=== PATIENT | male | born 1950 | race Caucasian/White ===

== ENCOUNTER → 2017-02-07 | Outpatient (CLI) | payer MEDICARE, BC ==
[~2017-02-07] MED LIST: ALLOPURINOL300 MG PO; APRESOLINE PO; ASPIRIN PO; ATACAND PO; CARVEDILOL25 MG; CARVEDILOL25 MG PO; CATAPRES0.3 MG PO; CHANTIX PO; COREG PO; COREG6.25 MG PO; DEMADEX PO; DIOVAN320 MG PO; DYNACIRC5 MG PO; ECOTRIN81 M1 PO; HYDRALAZINE HC100 MG PO; LASIX PO; LIPITOR PO; LIPITOR20 MG PO; LISINOPRIL PO; LONITEN10 M1 DOB; LORTAB 2.5/5001 TAB PO; LORTAB 7.5-5001 TAB PO; METHYLDOPA250 M1 PO; NITROGYLCERIN SUBLINGUAL; NITROSTAT0.4 MG SL; NORVASC PO; OMEPRAZOLE40 MG PO; PRILOSEC40 MG PO; PRINIVIL40 MG PO; SPIRONOLACTONE50 MG PO; TORSEMIDE10 MG PO; ZYLOPRIM PO
[2017-02-07 08:58] LABS: HEMATOCRIT 42.2 % (38.0-50.0); HEMOGLOBIN 14.4 gm/dL (13.0-16.0)
== END | disposition home or self-care (01) ==
LOC: CLAB 08:23
PROVIDERS: Nurse Practitioner
DX: E83.119 Hemochromatosis, unspecified (principal)
CPT/HCPCS: 36415; 85014; 85018; 99195; G0463

== ENCOUNTER → 2017-02-21 | Outpatient (CLI) | payer MEDICARE, BC ==
[2017-02-21 07:52] LABS: HEMOGLOBIN 13.3 gm/dL (13.0-16.0)
[2017-02-21 09:03] LABS: BASOPHIL# 0.1 X10e3 (0-0.3); BASOPHIL% 0.8 % (0-2.5); EOSINOPHIL# 0.3 X10e3 (0-0.7); EOSINOPHIL% 4.2 % (0.0-7.0); HEMATOCRIT 36.6 % (38.0-50.0); HEMOGLOBIN 12.5 gm/dL (13.0-16.0); LYMPHOCYTE# 1.4 X10e3 (1.0-3.5); LYMPHOCYTE% 19.1 % (17.0-45.0); MEAN CELL VOLUME 89.8 FL (83-96); MEAN CORPUSCULAR HEMOGLOBIN 30.5 PG (28-34); MEAN PLATELET VOLUME 8.5 FL (6.5-11.5); MONOCYTE# 0.6 X10e3 (0-1.0); MONOCYTE% 7.9 % (3.0-12.0); PLATELET COUNT 188 X10e3 (140-420); RED BLOOD COUNT 4.08 X10e (3.90-5.60); RED CELL DISTRIBUTION WIDTH 14.1 % (11.0-15.5); WHITE BLOOD COUNT 7.4 X10e3 (4.0-10.5)
[2017-02-21 09:16] LABS: DIFF IND NO
[2017-02-21 10:43] LABS: ALBUMIN SERUM 3.8 g/dL (3.5-5.0); BILIRUBIN,TOTAL 0.3 mg/dL (0.2-2.0); BUN/CREATININE RATIO 13.88; CALCIUM SERUM 8.6 mg/dL (8.4-10.2); CREATININE SERUM 1.8 mg/dL (0.6-1.4); GLOM FILT RATE Estimated 38.4 mL/min (>60); PROTEIN TOTAL SERUM 6.2 g/dL (6.0-8.3)
== END | disposition home or self-care (01) ==
LOC: CSSDAY 07:29
PROVIDERS: Nurse Practitioner
DX: E83.119 Hemochromatosis, unspecified (principal)
CPT/HCPCS: 36415; 80053; 82728; 85014; 85018; 85025; 99195; G0463

== ENCOUNTER 2017-05-16 10:26 | Emergency (ER) | payer MEDICARE, BC | END 2017-05-16 12:50 | disposition home or self-care (01) | LOC: CED 10:26 → CFTX 10:26 | DX: M10.9 Gout, unspecified (principal); I10 Essential (primary) hypertension; F17.210 Nicotine dependence, cigarettes, uncomplicated; Z88.8 Allergy status to other drugs, medicaments and biological substances | CPT/HCPCS: 99283 ==

== ENCOUNTER → 2017-06-01 | Outpatient (CLI) | payer MEDICARE, BC ==
[2017-06-01 08:46] LABS: BASOPHIL# 0.1 X10e3 (0-0.3); BASOPHIL% 0.9 % (0-2.5); EOSINOPHIL# 0.3 X10e3 (0-0.7); EOSINOPHIL% 3.2 % (0.0-7.0); HEMATOCRIT 41.4 % (38.0-50.0); LYMPHOCYTE# 1.7 X10e3 (1.0-3.5); LYMPHOCYTE% 16.9 % (17.0-45.0); MEAN CORPUSCULAR HEMOGLOBIN 30.4 PG (28-34); MEAN CORPUSCULAR HGB CONC 33.7 g/dL (30-36); MEAN PLATELET VOLUME 8.6 FL (6.5-11.5); MONOCYTE# 0.7 X10e3 (0-1.0); MONOCYTE% 6.6 % (3.0-12.0); NEUTROPHIL# 7.3 X10e3 (1.5-7.1); NEUTROPHIL% 72.4 % (40-75); PLATELET COUNT 205 X10e3 (140-420); RED CELL DISTRIBUTION WIDTH 13.7 % (11.0-15.5); WHITE BLOOD COUNT 10.1 X10e3 (4.0-10.5)
[2017-06-01 08:48] LABS: DIFF IND NO
== END | disposition home or self-care (01) ==
LOC: CLAB 08:18
PROVIDERS: Nurse Practitioner
DX: E83.119 Hemochromatosis, unspecified (principal)
CPT/HCPCS: 36415; 82728; 85025

== ENCOUNTER → 2017-07-18 | Outpatient (CLI) | payer MEDICARE, BC ==
--- NOTE | ~2017-07-18 | ST ---
Unit #: [id number] #: [id number] Patient: YNES ARROYO [id number] [address] [address] [id number] O MR#: [id number] NAME: YNES ARROYO : 1950 SEX: M STUDY DATE/TIME: UNIT: [facility] ROOM: STUDY DESCRIPTION: Stress Test Attending Physician: Benedict Le M.D. Referring Physician: Benedict Le M.D. Primary Care Physician: Fernando Henderson M.D. CARDIOLOGY REPORT EXAM Exercise Cardiolite Stress Test DESCRIPTION Baseline EKG - normal sinus rhythm with ventricular rate 72 beats per minute, right bundle branch block, early repolarization. Low voltage in V2, poor R wave progression. Patient walked on treadmill for 6 minutes utilizing Earl protocol achieving a workload of 7.30 METs. Patient had no complaints of chest pain, palpitations or dizziness. Had complaints of increased shortness of breath and weakness which resolved in recovery phase. EKG during the test showed some T wave inversion and with downsloping, inferior and anterolateral leads. IMPRESSION 1. Functional class 3 with a workload of 7.30 METs. 2. Patient walked for 6 minutes 17 seconds achieving 86% of maximum target heart rate at 133 beats per minute with a maximum blood pressure response of 173/96 mmHg. 3. It is noted that the patient's blood pressure decreased down to 162/96 at the end of recovery phase. 4. Patient had no complaints of chest pain, palpitations or dizziness. Had increased shortness of breath and fatigueness which resolved in recovery phase. 5. EKG showed ST-T wave abnormalities, T wave inversion with downsloping in inferior and anterolateral leads. 6. Cardiolite was injected at maximum target heart rate. Radionuclide test pending. Please correlate with nuclear images. 7. Also noted, the patient had frequent PVCs during the test. Also, one ventricular pair. Noted the patient did not take his beta edison this morning, will take it as soon as possible. Dictated by... Elisabeth Colon A.P.R.N. for Xiao Martínez/df Unit #: [id number] #: [id number] Patient: YNES ARROYO TD: 07/18/2017 11:07 JOB #: [id number] CARDIOLOGY REPORT Page 1 of 1 X Elisabeth Colon APRN CARDIOLOGY REPORT
--- NOTE | ~2017-07-18 | TH ---
Unit #: [id number] #: [id number] Patient: YNES ARROYO [id number] [address] [address] [id number] O MR#: [id number] NAME: YNES ARROYO : 1950 SEX: M STUDY DATE/TIME: UNIT: [facility] ROOM: STUDY DESCRIPTION: Nuclear Study Attending Physician: Benedict Le M.D. Referring Physician: Benedict Le M.D. Primary Care Physician: Fernando Henderson M.D. CARDIOLOGY REPORT EXAM Exercise Cardiolite Stress Test - Nuclear Portion PROCEDURE Using technetium 99m labeled Cardiolite, rest and stress SPECT images were obtained. Multiple SPECT images were obtained in various views including horizontal and vertical long axis and short axis views of the left ventricle. Images were obtained by gated SPECT method. Patient was administered 11.20 mCi of Cardiolite at rest. Patient was administered 31.5 mCi of Cardiolite at peak exercise. Total exercise time is 6 minutes 17 seconds. On the stress images, there is a small area of mild decreased isotope activity inferiorly. The rest images also show a small area of mild decreased isotope activity inferiorly. Comparing rest and stress images, there is no stress-induced ischemia noted. There is a small area of predominantly fixed defect seen inferiorly, most likely due to soft tissue artifact. The left ventricular ejection fraction is calculated to be 68%. There is no focal wall motion abnormality seen. CONCLUSION 1. No stress-induced ischemia noted. 2. There is a small area of predominantly fixed defect seen inferiorly, most likely due to soft tissue artifact. 3. The left ventricular ejection fraction is calculated to be 68%. 4. There is no focal wall motion abnormality seen. 5. Normal nuclear portion of the stress test. 6. Please correlate with the exercise portion of the test. Dictated by... Xiao Martínez TD: 07/19/2017 05:24 JOB #: [id number] Unit #: [id number] #: [id number] Patient: YNES ARROYO CARDIOLOGY REPORT Page 1 of 1 X Diane Zavaleta MD <ELECTRONICALLY SIGNED> 08/18/17 [facility] CARDIOLOGY REPORT
== END | disposition home or self-care (01) ==
LOC: CNUC 07:35
DX: Z02.1 Encounter for pre-employment examination (principal); I25.10 Atherosclerotic heart disease of native coronary artery without angina pectoris; I49.3 Ventricular premature depolarization
CPT/HCPCS: 78452; 93017; A9500